=== PATIENT | male | born 1945 | race Caucasian/White ===

== ENCOUNTER 2016-03-15 15:35 | Observation (INO) ==
[2016-03-15] MEDS ORDERED: Ondansetron 4 MG/2 ML VIAL IVP PRN (17:49)
[2016-03-15] MEDS ORDERED: Acetaminophen 325 MG TABLET PO PRN (17:49)
[2016-03-15] MEDS ORDERED: *HR* Morphine 2 MG/ML SYRINGE IVP PRN (17:49)
[2016-03-15] MEDS ORDERED: Naloxone 0.4 MG/ML INJ IVP PRN (17:49)
[2016-03-15] MEDS ORDERED: Nitroglycerin 0.4 MG TAB.SUBL SL PRN (17:52)
[2016-03-15] MEDS ORDERED: Ipratropium/Albuterol Neb 3 ML IH PRN (17:52)
[2016-03-15] MEDS ORDERED: *HR* LORazepam 2 MG/ML VIAL IVP PRN ×3 (17:55)
--- NOTE | 2016-03-15 17:59 | Internal Med History&Physical ---
Date of Encounter: 03/15/16 Time of Encounter: 17:56 Assessment and Plan (1) Right hand weakness Current visit: Yes Status: Acute Possible CVA likely ischemic with residual right hand weakness Neurology consult Physical therapy Telemetry, neuro checks MRI of the brain, echocardiogram, carotid ultrasound, Statin, check lipid panel Start low-dose aspirin 81 mg, if patient develops any of the multiple allergic reaction like with Aleve we will switch to Plavix (2) CVA (cerebral vascular accident) Current visit: Yes Status: Acute Qualifiers: CVA mechanism: unspecified Qualified Code(s): I63.9 - Cerebral infarction, unspecified (3) Alcohol abuse Current visit: Yes Status: Acute Ativan as needed per CIWA scale (4) Hypertension Current visit: Yes Status: Acute Permissive hypertension today Qualifiers: Hypertension type: essential hypertension Qualified Code(s): I10 - Essential (primary) hypertension (5) Hyperlipidemia Current visit: Yes Status: Acute Qualifiers: Hyperlipidemia type: unspecified Qualified Code(s): E78.5 - Hyperlipidemia , unspecified (6) Leg swelling Current visit: Yes Status: Acute Check a venous duplex of both lower extremities Omeprazole for GI prophylaxis and subcutaneous tenderness heparin for DVT prophylaxis. The patient will be admitted for observation. Full code. Time spent on this admission 40 minutes. High risk for recurrent CVAs Internal Medicine - H&P: HPI Chief complaint: Right hand weakness Admitted From: Emergency Dept ([place]) History of present illness: Mr. Kelsey is a 70 year old male with a past medical history of hypertension, hyperlipidemia, depression, alcohol abuse, who comes to the emergency room complaining of right hand weakness. He came to [place] ER she notices if she developed problems with his right hand. He says that he went to bed at 2 AM and woke up at 9 PM and was not able to write properly, noticed a difference in his handgrip. His strength has improved slightly from the morning. He says that he developed an allergic reaction in the past to Aleve but he thinks he is able to take aspirin without any problem. Denies any other complain no numbness , no weakness anywhere else, no dizziness, no chest pain, shortness of breath. CT scan of the head was unremarkable. Past Med Surg Social Fam HX - Past Medical History Medical history: GERD, hyperlipidemia, hypertension, other (Alcohol abuse, dermatologic reaction to Aleve, GERD, diverticulosis, vitamin D deficiency, BPH , depression, iron deficiency anemia) Psychiatric history: no psych history - Past Surgical History Surgical History: other (Colonoscopy with polypectomy in October 2013) - Social History Smoking Status: Former smoker Smokeless Tobacco Status: No Alcohol use: heavy (Drinks 6 ounces of hard liquor +3 beers but says that he can go 5 days without any drinking without any problems) Drug use: none - Family History Grandfather Hx Family Neuromuscular Disorders: Yes (CVA) Grandmother Hx Family Neurologic Disorders: Yes (CVA) Mother Hx Family Neuromuscular Disorders: Yes (CVA) - Additional Family History Additional family history: Father with throat cancer and mother with CVA Internal Medicine - H&P: Meds Atenolol [Tenormin] 50 mg PO BID 01/12/16 [History] Cholecalciferol (D-3) [Vitamin D] 2,000 unit PO QPM 01/12/16 [History] Multivitamin [Multi-Day Vitamins] 1 tab PO QPM 01/12/16 [History] [place]-3/Dha/Epa/Fish Oil [Fish Oil 1,000 mg Softgel] 1 cap PO QPM 01/12/16 [ History] Pantoprazole Sodium [Protonix] 40 mg PO QPM 01/12/16 [History] Simvastatin [Zocor] 20 mg PO Q48H 01/12/16 [History] Tamsulosin [Flomax] 0.4 mg PO QPM 01/12/16 [History] TraZODone 50 mg PO HS 01/12/16 [History] Allergies fluoxetine [From Prozac] Allergy (Verified 03/15/16 13:28) Rash NSAIDS (Non-Steroidal Anti-Inflamma Allergy (Verified 03/15/16 13:28) Rash amlodipine Adverse Reaction (Verified 03/15/16 17:49) See Comments FLUID RETENTION All Systems PM: A 10-system review of systems was performed and is negative for pertinent findings except as documented above in the HPI. Review of systems: No chest pain, shortness of breath, other systems out of the ten reviewed were negative - Constitutional Vitals: Temp Pulse Resp BP Pulse Ox 97.5 F L 65 15 139/85 98 03/15/16 17:25 03/15/16 17:25 03/15/16 17:25 03/15/16 17:25 03/15/16 17:25 General appearance: Present: A&O X 3, no acute distress - Head Head exam: Present: atraumatic, normocephalic - Eye Eye exam: Present: PERRL, conjuntiva pink, sclera anicteric Pupils: Present: PERRL - Neck Neck exam general surgery: Present: supple, trachea midline. Absent: lymphadenopathy - Respiratory Respiratory exam: Present: CTAB. Absent: accessory muscle use, rales, rhonchi, wheezes - Cardiovascular Cardiovascular exam: Present: RRR, +S1, +S2. Absent: diastolic murmur, gallop, rubs, systolic murmur - GI/Abdominal GI/Abdominal exam: Present: normal bowel sounds, soft, no peritoneal signs. Absent: distended, tenderness - Extremities Exam Extremities exam: Present: warm, radial pulses palpable and symetrical. Absent : calf tenderness, cyanotic, pedal edema Additional comments: Minimal weakness in his right hand No dysmetria - Neurological Exam Neurological exam: Present: CN II-XII intact, oriented X3, no focal deficits. Absent: pronater drift, facial droop, speech deficit - Skin Skin exam: Present: dry, intact Internal Med - H&P Results - Labs Labs: White blood cell count 6.1, hemoglobin 12.7 platelets 136 glucose 136 sodium 138 potassium 3.9 chloride 104 CO2 24 BUN 12 creatinine 1.35 at baseline
[2016-03-15] MEDS: Aspirin 81 MG TAB.CHEW PO SCH (18:31)
[2016-03-15] MEDS: 0.9 % Sodium Chloride 1,000 ML IVC SCH (18:32)
[2016-03-15] MEDS ORDERED: traZODone 50 MG TABLET PO SCH (21:00)
[2016-03-15] MEDS: *HR* Heparin 5,000 UNIT/ML VIAL SQ SCH (23:12)
[2016-03-16 05:08] LABS: BUN/Creatinine Ratio 10 (6-26); Blood Urea Nitrogen 12 mg/dL (8-26); Calcium 9.1 mg/dL (8.6-10.8); Carbon Dioxide 26 mEq/L (19-29); Chloride 105 mEq/L (98-109); Chol/HDL Ratio 2.9 (0-4.9); Cholesterol 147 mg/dL (< 200); Glucose 95 mg/dL (70-99); HDL Cholesterol 50 mg/dL (40-59); LDL Cholesterol,Calculated 76 mg/dL (0-99); Osmolality,Calculated 286 (280-300); Potassium 3.8 mEq/L (3.5-4.5); Sodium 138 mEq/L (136-145); Triglycerides 103 mg/dL (< 150); eGFR For African Americans > 60 (> 60); eGFR For Non-African Americans 58 (> 60)
[2016-03-16] MEDS: 0.9 % Sodium Chloride 1,000 ML IVC SCH (06:09)
[2016-03-16] MEDS: *HR* Heparin 5,000 UNIT/ML VIAL SQ SCH (09:01)
[2016-03-16] MEDS: Aspirin 81 MG TAB.CHEW PO SCH (09:01)
--- NOTE | 2016-03-16 11:54 | ECHO - Doppler Report ---
Echo with Saline Contrast Name: Piyush Kelsey Date of Study: 03/16/2016 Date: 1945 Ht: 71.0 in Medical Record#: [id number] Age: 70 Wt: 248.0 lb Gender: Male BSA: 2.31 Order #: [id number] Location: [facility] Room #: [id number] Reading Physician: Earlene Foster DO Operating Theatre Technician: Teresa Maxwell RVT Ordering Physician: Andres Saba MD Primary Physician: South Salomon MD Impressions: LVEF 60-65%. Normal left ventricular size and systolic function. There is evidence of mild diastolic dysfunction of the left ventricle. Normal right ventricular size and function. Mild mitral regurgitation. No pulmonary hypertension. Left Ventricular Wall Motion: Rest Echo Findings All wall segments showed normal motion. Findings: Study Quality * Technically adequate exam. ECG Findings * Normal sinus rhythm. Left Ventricle * LVEF 60-65%. * Normal LV chamber size, wall thickness and function. * Mild left ventricular diastolic dysfunction. Aortic Valve * No aortic regurgitation. * Aortic valve not well visualized. * No aortic stenosis. Mitral Valve * Normal mitral valve structure. * No mitral stenosis. * Mild mitral regurgitation. Tricuspid Valve * Tricuspid valve not well visualized. * No tricuspid regurgitation. * Estimated RA pressure is 3 mmHg. Pulmonic Valve * Pulmonic valve is not well visualized. * No pulmonic stenosis. * No pulmonic regurgitation. Pulmonary Artery * Pulmonary artery not well visualized. Right Ventricle * Normal right ventricular structure and function. Right Atrium * Normal right atrial size. Left Atrium * Mildly dilated left atrium. Interatrial Septum * No evidence of PFO by color Doppler. * No evidence of PFO with agitated saline contrast. IVC * The IVC is not dilated. Pericardium * There is no pericardial effusion present. Aorta * Normally sized aortic root. History Measurements: 2D Normal Values RVIDd: 3.10 cm <2.7 cm IVSd: 1.00 cm 0.6 - 1.0 cm LVIDd: 5.10 cm 3.7 - 5.6 cm LVPWd: 1.10 cm 0.6 - 1.1 cm AO: 3.10 cm < 4.0 cm LA volume: Mitral Valve Peak E:.91 m/sec Peak A:.89 m/sec E/A Ratio:1 Tricuspid Valve TV Regurg Peak Grad: 5.00mmHg TV Regurg Peak Michael: 1.14m/sec Updated by Earlene Foster on 03/16/2016 11:47:15 AM electronically signed on 03/16/2016 11:48:12 AM with status of Final Wall Motion Gonzalez: 1=Normal, 2=Hypokinesis, 3=Akinesis, 4=Dyskinesis, 5=Aneurysmal, 6=Hyperkinetic, X=Not Visualized (Blank)=Missing
--- NOTE | 2016-03-16 12:11 | Venous Imaging Report ---
LE Venous Duplex Patient Name:Piyush Kelsey Order Number:[id number] Procedure Date:03/15/2016 Date:1945ge:70 yrs Gender:Male Location:[facility] Room #: [id number] [place] Operator:Sarah Haley Referring MD:Andres Saba MD budget clerk:South Salomon MD Reading MD:Marino Hernandez MD , FACS Primary Indications:CVA Secondary Indications: Impressions: Bilateral lower extremity: normal superficial and deep exam. Recommendations: After imaging the patient returned to their room. Findings Prior Study: No prior study available for comparison. Lower Extremity Venous Duplex Side Vein Compress Spontaneous Flow Augment Diameter (cm) Depth (cm) Right Distal Iliac Normal Yes Phasic Yes Right Common Femoral Normal Yes Phasic Yes Right Superficial Femoral Normal Yes Phasic Yes Right Popliteal Normal Yes Phasic Yes Right Posterior Tibial Normal Yes Phasic Yes Right Peroneal Normal Yes Phasic Yes Right Saphenofemoral [place] Normal Yes Phasic Yes Right Great Saphenous Normal Yes Phasic Yes Right Lesser Saphenous Normal Yes Phasic Yes Left Distal Iliac Normal Yes Phasic Yes Left Common Femoral Normal Yes Phasic Yes Left Superficial Femoral Normal Yes Phasic Yes Left Popliteal Normal Yes Phasic Yes Left Posterior Tibial Normal Yes Phasic Yes Left Peroneal Normal Yes Phasic Yes Left Saphenofemoral [place] Normal Yes Phasic Yes Left Great Saphenous Normal Yes Phasic Yes Left Lesser Saphenous Normal Yes Phasic Yes Updated by Marino Hernandez MD, FACS on 03/16/2016 12:05:03 PM Marnio Hernandez MD electronically signed on 03/16/2016 12:05:48 PM with status of Final
[2016-03-16] MEDS ORDERED: Benzonatate 100 MG CAPSULE PO PRN (12:40)
--- NOTE | 2016-03-16 13:43 | Neurology - Consult Note ---
Date of Encounter: 03/16/16 Time of Encounter: 13:43 Assessment and Plan (1) CVA (cerebral vascular accident) Current Visit: Yes Status: Acute - presents with right hand weakness that is improving - he has radiologic evidence of microinfarct to left precentral gyrus which would correlate to the right upper extremity and clinical findings - patient has no other neurologic deficits - ECHO is normal with EF 60-65% with mild diastolic dysfunction and mild MR and a mildly dilated left atrium - Carotid doppler reveals 40-59% right sided stenosis and non-stenotic plaque on the left - would recommend taking ASA daily Qualifiers: CVA mechanism: unspecified Qualified Code(s): I63.9 - Cerebral infarction, unspecified (2) Right hand weakness Current Visit: Yes Status: Acute - improving, initial weakness was isolated to thumb, and 2nd/3rd digits - denies numbness or tingling in the hand and affected digits - there is no thenar eminence atrophy - Tinel's sign negative and unlikely that this was due to carpal tunnel syndrome - plan as described above History of Present Illness Chief complaint: CVA/RIGHT HAND WEAKNESS HPI: Mr. Kelsey is a 70 year old male with past medical history of HTN, HLD, and alcohol abuse presents to the ED for right hand weakness. Patient was admitted to hospital for TIA/CVA workup and Neurology was consulted. Reports waking up at 0900 on 03/15/16 with right hand weakness isolated to the thumb and 2nd/3rd finger. He noticed a change in handgrip when using a pen to sign checks. His signature was described as sloppy and unrecognizable. Denies any other symptoms such as hand numbness, headache, neck pain, visual changes, or weakness in other extremities. Denies any slurred speech or facial droop. He reports going directly to a mirror to look at himself after noticing his hand weakness. He called his PCP Dr. Salomon and was advised to go to the ED around noon. Denies any history of CVA/TIA. Currently his workup is significant for acute microinfarct within the left precentral gyrus on Brain MRI. Initial CT head was normal with no intracranial abnormality. Denies history of cardiac ischemic disease or DVT/PE. No history of atrial fibrillation. No injuries, surgeries, or recent travel. He admits to drinking alcohol but denies IV drug use. Admits that he normally is on the computer and typing. On examination today patient is pleasant, alert, and oriented to person place and time. He reports significant improvement in right hand strength. He just worked with PT with dexterity. Denies any current complaints such as headache, radicular pain, dizziness, visual changes, neck pain, back pain, or other extremity weakness. Past Med Surg Social Fam HX - Past Medical History Medical history: GERD, hyperlipidemia, hypertension, other (Alcohol abuse, dermatologic reaction to Aleve, GERD, diverticulosis, vitamin D deficiency, BPH , depression, iron deficiency anemia) Psychiatric history: no psych history - Past Surgical History Surgical History: other (Colonoscopy with polypectomy in October 2013) - Social History Smoking Status: Former smoker Smokeless Tobacco Status: No Alcohol use: heavy (Drinks 6 ounces of hard liquor +3 beers but says that he can go 5 days without any drinking without any problems) Drug use: none - Family History Grandfather Hx Family Neuromuscular Disorders: Yes (CVA) Grandmother Hx Family Neurologic Disorders: Yes (CVA) Mother Hx Family Neuromuscular Disorders: Yes (CVA) Medications and Allergies Atenolol [Tenormin] 50 mg PO BID 01/12/16 [History] Cholecalciferol (D-3) [Vitamin D] 2,000 unit PO QPM 01/12/16 [History] Multivitamin [Multi-Day Vitamins] 1 tab PO QPM 01/12/16 [History] [place]-3/Dha/Epa/Fish Oil [Fish Oil 1,000 mg Softgel] 1 cap PO QPM 01/12/16 [ History] Pantoprazole Sodium [Protonix] 40 mg PO QPM 01/12/16 [History] Simvastatin [Zocor] 20 mg PO Q48H 01/12/16 [History] Tamsulosin [Flomax] 0.4 mg PO QPM 01/12/16 [History] TraZODone 50 mg PO HS 01/12/16 [History] Aspirin 81 mg PO DAILY #30 tab.chew 03/16/16 [Rx] Benzonatate [Tessalon] 200 mg PO TID PRN #30 capsule 03/16/16 [Rx] Allergies fluoxetine [From Prozac] Allergy (Verified 03/15/16 13:28) Rash NSAIDS (Non-Steroidal Anti-Inflamma Allergy (Verified 03/15/16 13:28) Rash amlodipine Adverse Reaction (Verified 03/15/16 17:49) See Comments FLUID RETENTION All Systems: A 10-system review of systems was performed and is negative for pertinent findings except as documented above in the HPI. - Constitutional Constitutional ROS IM: as per HPI - Nose, Mouth, Throat Nose, mouth and throat: as per HPI - Cardiovascular Cardiovascular ROS IM: as per HPI - Respiratory Respiratory IM: as per HPI - Gastrointestinal Gastrointestinal: as per HPI - Genitourinary Genitourinary ROS: as per HPI - Musculoskeletal Musculoskeletal ROS IM: as per HPI - Integumentary Integumentary IM: as per HPI - Neurological Neurological ROS: lack of coordination, weakness (right hand), no abnormal gait , no abnormal speech, no dizziness, no focal weakness, no loss of vision, no numbness, no paresthesias, no radicular pain, no sensory deficit, no syncope Physical Examination - Vital Signs Vital Signs: Initial Vital Signs Temp Pulse Resp BP Pulse Ox 97.5 F L 65 15 139/85 98 03/15/16 17:25 03/15/16 17:25 03/15/16 17:25 03/15/16 17:25 03/15/16 17:25 - Constitutional General appearance: comfortable - Neurologic Sensorimotor examination: intact Detailed motor examination: grossly full strength in all extremities, full strength in all major muscle groups Motor examination - right side: 4/5: manager telemarketing, 5/5: deltoids, biceps, triceps, wrist flexion, wrist extension, hip flexors, tibialis Anterior, quadriceps, toe extension (EHL), plantarflexion Motor examination - left side: 5/5: deltoids, biceps, triceps, wrist flexion, wrist extension, hip flexors, manager telemarketing, quadriceps, tibialis Anterior, toe extension (EHL), plantarflexion Detailed sensory examination: intact, light touch Reflex and gait examination: intact Reflexes: Biceps: 1+, Triceps: 1+, Brachioradialis: 1+, Patella: 1+, Achilles: 1 + Mental Status Examination: awake, alert, oriented to person, oriented to place, oriented to time, follows commands appropriately, answers questions appropriately, no agnosia, no aphasia, no aproxia Cranial nerve examination: PERRL, EOMI, visual franco intact, sensory to face intact, mastication intact, no facial asymmetry is present, no dysarthria, hearing is intact symmetrically, soft palate elevates bilaterally upon phonation , flexes SCM and trapezius muscles symmetrically with full power, tongue protrudes midline, no atrophy or facial fasiculations present Cerebellar examination: no dysmetria, performs finger to nose and heel to metzger symmetrically without ataxia, no gait ataxia, no difficulty with rapid alternating movements Results - Laboratory Findings CBC and BMP: 03/16/16 04:32 Abnormal lab findings: Abnormal lab results Est GFR (Non-Af Amer) 58 (> 60) L 03/16/16 04:32 Consult Discharge Plan - Plan Instructions: Hypertension (DC) Referrals: South Salomon MD [Primary Care Provider] - Prescriptions: Aspirin 81 mg PO DAILY #30 tab.chew Benzonatate [Tessalon] 200 mg PO TID PRN #30 capsule PRN Reason: Cough
[2016-03-16 14:46] VITALS: BP 111/71
--- NOTE | 2016-03-16 16:25 | Discharge Summary ---
Date of Encounter: 03/16/16 Time of Encounter: 16:22 - Discharge Diagnosis (1) CVA (cerebral vascular accident) Priority: Primary Status: Acute Qualifiers: CVA mechanism: unspecified Qualified Code(s): I63.9 - Cerebral infarction, unspecified (2) Hyperlipidemia Priority: Secondary Status: Acute Qualifiers: Hyperlipidemia type: unspecified Qualified Code(s): E78.5 - Hyperlipidemia , unspecified (3) Hypertension Priority: Secondary Status: Acute Qualifiers: Hypertension type: essential hypertension Qualified Code(s): I10 - Essential (primary) hypertension (4) Right hand weakness Priority: Primary Status: Acute - Discharge Medications Prescriptions: Aspirin 81 mg PO DAILY #30 tab.chew Benzonatate [Tessalon] 200 mg PO TID PRN #30 capsule PRN Reason: Cough Home Medications: Atenolol [Tenormin] 50 mg PO BID 01/12/16 [History] Cholecalciferol (D-3) [Vitamin D] 2,000 unit PO QPM 01/12/16 [History] Multivitamin [Multi-Day Vitamins] 1 tab PO QPM 01/12/16 [History] [place]-3/Dha/Epa/Fish Oil [Fish Oil 1,000 mg Softgel] 1 cap PO QPM 01/12/16 [ History] Pantoprazole Sodium [Protonix] 40 mg PO QPM 01/12/16 [History] Simvastatin [Zocor] 20 mg PO Q48H 01/12/16 [History] Tamsulosin [Flomax] 0.4 mg PO QPM 01/12/16 [History] TraZODone 50 mg PO HS 01/12/16 [History] Aspirin 81 mg PO DAILY #30 tab.chew 03/16/16 [Rx] Benzonatate [Tessalon] 200 mg PO TID PRN #30 capsule 03/16/16 [Rx] Allergies/Adverse Reactions: Allergies fluoxetine [From Prozac] Allergy (Verified 03/15/16 13:28) Rash NSAIDS (Non-Steroidal Anti-Inflamma Allergy (Verified 03/15/16 13:28) Rash amlodipine Adverse Reaction (Verified 03/15/16 17:49) See Comments FLUID RETENTION Procedures/tests Complete & Pending: Procedures Performed prior 72 hours Category Date Time Status MR head/brain wo con [MR] Routine MRI 03/15/16 17:53 Completed EV carotid duplex imaging BI Routine Y 03/15/16 17:53 Completed EV echocardiogram Routine Y 03/16/16 17:53 Completed EV venous imaging LE BI Routine Y 03/15/16 17:53 Completed Date of admission: 03/15/16 17:04 Primary care physician: South Salomon MD Consults: 03/15/16 17:51 Consult to Physical Therapy [CONS] Routine Comment: Evaluate, develop and implement POC Consult to Scrub Tech [CONS] Routine Reason for SW Consult: . 03/15/16 17:55 Consult to Neurology [CONS] Routine Consulting Provider: Neurology [facility] Reason for Consult: cva, right hand weakness Call Completed: Yes Discharging clinician: Duc Lion Anticipated date of discharge: 03/16/16 - Patient Status Disposition: Home, Self-Care Condition: Fair Functional capacity at discharge: independent ambulation Overall status at discharge: patient is back to baseline - Discharge Instructions Instructions: Hypertension (DC) Follow Up With: South Salomon MD [Primary Care Provider] - - Diet and Activity Activity: resume usual activities as tolerated Diet: advance to your usual diet Interval History: Mr. Kelsey is a 70 year old male with past medical history of HTN, HLD, and alcohol abuse presents to the ED for right hand weakness. Reports waking up at 9A on 03/15/16 with right hand weakness isolated to the thumb and 2nd/3rd finger. He noticed a change in handgrip when using a pen to sign checks. His signature was described as sloopy and unrecognizable. Denies any other symptoms such as hand numbness, headache, neck pain, visual changes, or weakness in other extremities. Denies any slurred speech or facial droop. He reports going directly to a mirror to look at himself after noticing his hand weakness. He called his PCP Dr. Salomon and was advised to go to the ED around noon. Denies any history of CVA/TIA/ Denies history of cardiac ischemic disease or DVT/PE. No history of atrial fibrillation. No injuries, surgeries, or recent travel. He admits to drinking alcohol but denies IV drug use. Patient was admitted to [facility] for CVA/TIA workup as he continued to have right hand weakness. Neurology consulted for right hand weakness. CT head was normal without intracranial abnormality. Brain MRI demonstrates an acute microinfarct within left Precentral Gyrus. On examination, patient is pleasant, alert, and oriented to person place and time. He reports significant improvement in right hand strength. He just worked with PT with dexterity. Denies any current complaints such as headache, radicular pain, dizziness, visual changes, neck pain, back pain, or other extremity weakness. ECHO is normal with EF 60-65% with mild diastolic dysfunction and mild MR and a mildly dilated left atrium - Carotid doppler reveals 40-59% right sided stenosis and non-stenotic plaque on the left - neurology recommneded ASA daily, limited PT OT was consulted and they recommended outpatient rehabilitation. She has being discharged today in stable condition,SW discussed therapies recommendation for continued outpt. therapy once he is discharged. Informed pt. that he will need to have referral made through his PCP. Pt. verbalizes understanding. Hospital course: Mr. Kelsey is a 70 year old male Time spent discussing smoking cessation with patient: more than 10 minutes - Time Spent with Patient Total time spent providing and/or coordinating discharge services: Greater than 30 minutes - Constitutional Vitals: Temp Pulse Resp BP Pulse Ox 98.0 F 70 14 111/71 93 L 03/16/16 14:46 03/16/16 14:46 03/16/16 14:46 03/16/16 14:46 03/16/16 14:46 General appearance: Present: A&O X 3, no acute distress Exam: General appearance: Present: A&O X 3, no acute distress - Head Head exam: Present: atraumatic, normocephalic - Eye Eye exam: Present: PERRL, conjuntiva pink, sclera anicteric Pupils: Present: PERRL - Neck Neck exam general surgery: Present: supple, trachea midline. Absent: lymphadenopathy - Respiratory Respiratory exam: Present: CTAB. Absent: accessory muscle use, rales, rhonchi, wheezes - Cardiovascular Cardiovascular exam: Present: RRR, +S1, +S2. Absent: diastolic murmur, gallop, rubs, systolic murmur - GI/Abdominal GI/Abdominal exam: Present: normal bowel sounds, soft, no peritoneal signs. Absent: distended, tenderness - Extremities Exam Extremities exam: Present: warm, radial pulses palpable and symetrical. Absent : calf tenderness, cyanotic, pedal edema Additional comments: Minimal weakness in his right hand No dysmetria - Neurological Exam Neurological exam: Present: CN II-XII intact, oriented X3, no focal deficits. Absent: pronater drift, facial droop, speech deficit - Skin Skin exam: Present: dry, intact
--- NOTE | 2016-03-16 17:13 | Carotid Imaging Report ---
Carotid Duplex Patient Name:Piyush Kelsey Order Number:[id number] Procedure Date:03/15/2016 Date:6Age:70 yrs Gender:Male Location:[facility] Room #: 3B41 African Studies Professor:Sarah Haley Referring MD:Andres Saba MD slip cover estimator:[place] MD Reading MD:Marino Hernandez MD , FACS Primary Indications:CVA Risk Factors Yes/No Hypertension Hypercholesterolemia Hx of CVA Unknown Smoker Previous Impressions: Findings: Right distal ICA has a moderate, 40-59% stenosis. Findings: Right carotid system is essentially normal. Findings Carotid Duplex: Right: There is 40-59% stenosis in the right distal internal carotid artery. There is smooth homogeneous plaque. Left: There is nonstenotic plaque in the left distal common carotid artery. There is smooth homogeneous plaque. Prior Study: No prior study available for comparison. Carotid Results Right PSV EDV Assessment Proximal CCA 124 22 Normal Mid CCA 95 24 Normal Distal CCA 104 27 Normal Bifurcation 59 16 Normal Proximal ICA 66 18 Normal Mid ICA 91 34 Normal Distal ICA 123 53 40-59% stenosis ECA 86 16 Normal Vertebral Artery 28 10 Antegrade Flow Left PSV EDV Assessment Proximal CCA 112 29 Normal Mid CCA 104 30 Normal Distal CCA 119 34 Non Stenotic Plaque Bifurcation 127 37 Non Stenotic Plaque Proximal ICA 58 14 Normal Mid ICA 87 36 Normal Distal ICA 91 35 Normal ECA 72 14 Normal Vertebral Artery 67 27 Antegrade Flow Ratio's Right ICA/CCA Ratio: 1.30 ICA/CCA Values: 123/95 Left ICA/CCA Ratio: 0.88 ICA/CCA Values: 91/104 Updated by Marino Hernandez MD, FACS on 03/16/2016 5:07:48 PM Marino Hernandez MD electronically signed on 03/16/2016 5:08:45 PM with status of Final
== END 2016-03-16 17:36 | disposition home or self-care (01) ==
LOC: 3BNU
PROVIDERS: ADMIT Internal Medicine; ATTEND Nurse Practitioner Family

== ENCOUNTER 2020-08-13 13:30 | Inpatient (IN) ==
[2020-08-13] MEDS ORDERED: Naloxone 0.4 MG/ML INJ IVP PRN (15:34)
[2020-08-13] MEDS ORDERED: Vancomycin (wt based) 1,000 MG VIAL IVPB SCH (16:00)
[2020-08-13] MEDS ORDERED: 0.9 % Sodium Chloride 3,000 ML ONE (16:19)
[2020-08-13 16:39] LABS: ABG Base Excess 0 mEq/L (-2 to 3); ABG HCO3 24 mEq/L (21-27); ABG Oxygen Saturation 96 % (95-98); ABG PCO2 38 mmHg (35-45); ABG PH 7.41 pH Units (7.32-7.45); ABG PO2 77 mmHg (85-104); ABG TCO2 25 mEq/L (20-26); Blood Gas Pressure Support 10 cm H2O
[2020-08-13 17:05] LABS: Hematocrit 27.7 % (37.5-50.1); Hemoglobin 9.7 g/dL (12.9-16.9); Immature Platelets 3.4 % (1.1-6.1); Mean Corpuscular Hemoglobin 36.5 pg (28.0-33.3); Mean Corpuscular Volume 104.1 fL (83.0-100.0); Mean Platelet Volume 9.5 fL (9.4-12.4); Platelet Count 102 K/mcL (140-400); Red Blood Count 2.66 M/mcL (4.19-5.50); Red Cell Distribution Width 14.2 % (11.5-14.5); White Blood Count 4.8 K/mcL (4.3-11.1)
[2020-08-13 17:10] LABS: INR 1.7; Prothrombin Time 19.5 Seconds (9.4-12.1)
[2020-08-13 17:13] LABS: Activated Partial Thrombo Time 32.1 Seconds (26.0-36.0)
[2020-08-13 17:27] LABS: Alanine Aminotransferase 41 Units/L (7-52); Albumin 2.3 g/dL (3.5-5.7); Alkaline Phosphatase 84 Units/L (34-104); Aspartate Amino Transferase 58 Units/L (13-39); BUN/Creatinine Ratio 8 (6-26); Bilirubin,Direct 0.6 mg/dL (0.0-0.2); Bilirubin,Indirect 0.7 mg/dL (0.0-1.0); Bilirubin,Total 1.3 mg/dL (0.3-1.0); Blood Urea Nitrogen 10 mg/dL (8-23); Carbon Dioxide 25 mEq/L (23-29); Chloride 106 mEq/L (98-107); Globulin 2.4 g/dL (2.4-3.5); Glucose 111 mg/dL (70-105); Magnesium 1.5 mg/dL (1.6-2.6); Osmolality,Calculated 288 (280-300); Phosphorous 3.1 mg/dL (2.7-4.5); Sodium 139 mEq/L (136-145); Total Protein 4.7 g/dL (6.4-8.9); Troponin I 0.08 ng/mL (< 0.04); eGFR For African Americans > 60 (> 60); eGFR For Non-African Americans 54 (> 60)
[2020-08-13 17:31] LABS: Lymphocytes # 0.6 K/mcL (0.6-4.6); Neutrophils # 4.2 K/mcL (1.6-8.9)
[2020-08-13 17:32] LABS: Reactive Lymphocytes Present (Not Present); Smudge Cells Present (Not Present)
[2020-08-13] MEDS ORDERED: Vancomycin 1,500 MG/265 ML IV.SOLN IVPB ONE (17:44)
[2020-08-13] MEDS: 0.9 % Sodium Chloride 1,000 ML IVC SCH ×3 (17:44→19:22)
[2020-08-13 17:54] LABS: Bilirubin,Urine Negative (Negative); Blood,Urine Negative (Negative); Clarity,Urine Clear (Clear); Color,Urine Light-Yellow (Yellow); Glucose,Urine (UA) Normal (Normal); Hyaline Casts,Urine Few per lpf (None Seen); Ketones,Urine Negative (Negative); Leukocyte Esterase,Urine Small (Negative); Nitrite,Urine Negative (Negative); Protein,Urine Negative (Neg-Trace); RBC,Urine 0-3 per hpf (0-3); Specific Gravity,Urine 1.012 (1.010-1.025); Squamous Epithelial Cell,Urine Few per hpf (None-Few); Urobilinogen,Urine Normal (Normal)
[2020-08-13] MEDS ORDERED: Ipratropium/Albuterol Neb 3 ML IH PRN (18:03)
[2020-08-13] MEDS: Piperacillin/Tazobactam 3.375 GM in 0.9 % Sodium Chloride Mini Bag 100 ML IVPB SCH (18:36)
[2020-08-13] MEDS: Thiamine (B-1) 100 MG, Folic Acid 1 MG, MVI, adult with vitamin K 10 ML in 0.9 % Sodi... IVPB SCH (18:58)
[2020-08-14] MEDS: Norepinephrine 4 MG/254 ML IV.SOLN IVC SCH ×2 (01:07→15:23)
[2020-08-14] MEDS: Piperacillin/Tazobactam 3.375 GM in 0.9 % Sodium Chloride Mini Bag 100 ML IVPB SCH ×3 (03:09→18:04)
[2020-08-14 04:02] LABS: Hematocrit 27.1 % (37.5-50.1); Hemoglobin 9.1 g/dL (12.9-16.9); Lymphocytes # 0.4 K/mcL (0.6-4.6); Mean Corpuscular HGB Conc 33.6 g/dL (31.6-35.5); Mean Corpuscular Volume 107.1 fL (83.0-100.0); Mean Platelet Volume 9.8 fL (9.4-12.4); Red Blood Count 2.53 M/mcL (4.19-5.50); Red Cell Distribution Width 14.4 % (11.5-14.5); White Blood Count 3.6 K/mcL (4.3-11.1)
[2020-08-14 04:04] LABS: Platelet Count 75 K/mcL (140-400)
[2020-08-14 04:10] LABS: VBG Ionized Calcium 1.19 mmol/L (1.15-1.35)
[2020-08-14 04:16] LABS: Alanine Aminotransferase 47 Units/L (7-52); Albumin 2.2 g/dL (3.5-5.7); Alkaline Phosphatase 84 Units/L (34-104); Aspartate Amino Transferase 79 Units/L (13-39); BUN/Creatinine Ratio 10 (6-26); Bilirubin,Total 1.1 mg/dL (0.3-1.0); Blood Urea Nitrogen 12 mg/dL (8-23); Calcium 7.5 mg/dL (8.6-10.3); Carbon Dioxide 24 mEq/L (23-29); Chloride 111 mEq/L (98-107); Globulin 2.2 g/dL (2.4-3.5); Glucose 103 mg/dL (70-105); Magnesium 1.7 mg/dL (1.6-2.6); Osmolality,Calculated 288 (280-300); Phosphorous 2.9 mg/dL (2.7-4.5); Potassium 3.7 mEq/L (3.5-5.1); Sodium 139 mEq/L (136-145); Total Protein 4.4 g/dL (6.4-8.9); eGFR For African Americans > 60 (> 60); eGFR For Non-African Americans > 60 (> 60)
[2020-08-14 04:32] LABS: Eosinophils # 0.1 K/mcL (0.0-0.6); Monocytes # 0.1 K/mcL (0.0-1.3)
[2020-08-14 04:33] LABS: Platelet Estimate Decreased (Normal); Reactive Lymphocytes Present (Not Present); Toxic Granulation Present (Not Present)
[2020-08-14] MEDS: *HR* Heparin 5,000 UNIT/ML VIAL SQ SCH ×2 (05:47→17:11)
[2020-08-14] MEDS: MethylPREDNISolone 40 MG/ML VIAL IVP SCH ×2 (05:47→17:11)
[2020-08-14] MEDS ORDERED: Vancomycin 1,500 MG/265 ML IV.SOLN IVPB SCH (07:00)
[2020-08-14] MEDS ORDERED: Perflutren Lipid Microsphere 1.3 ML in 0.9 % Sodium Chloride 8.7 ML IVP PRN (09:30)
[2020-08-14] MEDS: Thiamine (B-1) 100 MG, Folic Acid 1 MG, MVI, adult with vitamin K 10 ML in 0.9 % Sodi... IVPB SCH (17:13)
[2020-08-15] MEDS: Piperacillin/Tazobactam 3.375 GM in 0.9 % Sodium Chloride Mini Bag 100 ML IVPB SCH ×3 (02:37→19:44)
[2020-08-15 03:10] LABS: VBG Ionized Calcium 1.26 mmol/L (1.15-1.35)
[2020-08-15 03:18] LABS: Basophils % 0.3 %; Hematocrit 27.6 % (37.5-50.1); Hemoglobin 9.1 g/dL (12.9-16.9); Immature Granulocytes % 0.6 % (0-4); Immature Platelets 4.9 % (1.1-6.1); Lymphocytes # 0.2 K/mcL (0.6-4.6); Lymphocytes % 7.1 %; Mean Corpuscular Hemoglobin 35.5 pg (28.0-33.3); Mean Corpuscular Volume 107.8 fL (83.0-100.0); Mean Platelet Volume 10.3 fL (9.4-12.4); Monocytes # 0.2 K/mcL (0.0-1.3); Red Blood Count 2.56 M/mcL (4.19-5.50); Red Cell Distribution Width 14.1 % (11.5-14.5); White Blood Count 3.4 K/mcL (4.3-11.1)
[2020-08-15 03:19] LABS: Platelet Count 88 K/mcL (140-400)
[2020-08-15 03:37] LABS: Alanine Aminotransferase 47 Units/L (7-52); Albumin 2.2 g/dL (3.5-5.7); Albumin/Globulin Ratio 0.9 (1.1-2.2); Alkaline Phosphatase 79 Units/L (34-104); Aspartate Amino Transferase 69 Units/L (13-39); BUN/Creatinine Ratio 16 (6-26); Bilirubin,Total 0.9 mg/dL (0.3-1.0); Blood Urea Nitrogen 18 mg/dL (8-23); Calcium 7.8 mg/dL (8.6-10.3); Carbon Dioxide 22 mEq/L (23-29); Chloride 111 mEq/L (98-107); Globulin 2.4 g/dL (2.4-3.5); Glucose 122 mg/dL (70-105); Magnesium 2.1 mg/dL (1.6-2.6); Osmolality,Calculated 301 (280-300); Phosphorous 2.8 mg/dL (2.7-4.5); Sodium 144 mEq/L (136-145); Total Protein 4.6 g/dL (6.4-8.9); eGFR For African Americans > 60 (> 60); eGFR For Non-African Americans > 60 (> 60)
[2020-08-15 03:40] LABS: Platelet Estimate Slight Decrease (Normal)
[2020-08-15 03:41] LABS: Toxic Granulation Present (Not Present)
[2020-08-15] MEDS: *HR* Heparin 5,000 UNIT/ML VIAL SQ SCH (04:35)
[2020-08-15] MEDS ORDERED: Ipratropium/Albuterol Neb 3 ML IH PRN (05:01)
[2020-08-15] MEDS ORDERED: Naloxone 0.4 MG/ML INJ IVP PRN (05:01)
[2020-08-15] MEDS ORDERED: Pantoprazole 40 MG VIAL IVP SCH (06:00)
[2020-08-15] MEDS ORDERED: *HR* Heparin 5,000 UNIT/ML VIAL SQ SCH (06:00)
[2020-08-15] MEDS: MethylPREDNISolone 40 MG/ML VIAL IVP SCH ×2 (06:44→17:16)
[2020-08-15] MEDS ORDERED: Ipratropium Neb 0.5 MG NEBULIZER IH PRN (08:10)
[2020-08-15] MEDS: Vancomycin 1,750 MG/517.5 ML IV.SOLN IVPB SCH (08:23)
[2020-08-15] MEDS: Levalbuterol Neb 0.63 MG/3 ML IH SCH ×3 (09:49→22:36)
[2020-08-15 12:30] LABS: VBG HCO3 24 mEq/L (21-27); VBG PCO2 49 mmHg (41-51); VBG PH 7.29 pH Units (7.32-7.42); VBG PO2 226 mmHg (25-50)
[2020-08-15] MEDS ORDERED: Thiamine (B-1) 100 MG, Folic Acid 1 MG, MVI, adult with vitamin K 10 ML in 0.9 % Sodi... IVPB SCH (18:00)
[2020-08-16] MEDS: Piperacillin/Tazobactam 3.375 GM in 0.9 % Sodium Chloride Mini Bag 100 ML IVPB SCH ×3 (02:48→17:50)
[2020-08-16 03:05] LABS: VBG HCO3 24 mEq/L (21-27); VBG Ionized Calcium 1.28 mmol/L (1.15-1.35); VBG PCO2 49 mmHg (41-51); VBG PH 7.29 pH Units (7.32-7.42); VBG PO2 203 mmHg (25-50)
[2020-08-16 03:06] LABS: Hematocrit 28.2 % (37.5-50.1); Hemoglobin 9.3 g/dL (12.9-16.9); Immature Granulocytes % 0.9 % (0-4); Immature Platelets 5.3 % (1.1-6.1); Lymphocytes # 0.2 K/mcL (0.6-4.6); Lymphocytes % 3.7 %; Mean Corpuscular Hemoglobin 35.2 pg (28.0-33.3); Mean Corpuscular Volume 106.8 fL (83.0-100.0); Mean Platelet Volume 10.2 fL (9.4-12.4); Monocytes # 0.3 K/mcL (0.0-1.3); Monocytes % 4.4 %; Neutrophils # 5.2 K/mcL (1.6-8.9); Platelet Count 109 K/mcL (140-400); Red Blood Count 2.64 M/mcL (4.19-5.50); Red Cell Distribution Width 14.2 % (11.5-14.5); White Blood Count 5.7 K/mcL (4.3-11.1)
[2020-08-16 03:24] LABS: Alanine Aminotransferase 46 Units/L (7-52); Albumin 2.3 g/dL (3.5-5.7); Albumin/Globulin Ratio 0.9 (1.1-2.2); Alkaline Phosphatase 106 Units/L (34-104); Aspartate Amino Transferase 51 Units/L (13-39); BUN/Creatinine Ratio 19 (6-26); Bilirubin,Total 0.7 mg/dL (0.3-1.0); Blood Urea Nitrogen 23 mg/dL (8-23); Calcium 8.3 mg/dL (8.6-10.3); Carbon Dioxide 22 mEq/L (23-29); Chloride 112 mEq/L (98-107); Globulin 2.7 g/dL (2.4-3.5); Glucose 135 mg/dL (70-105); Osmolality,Calculated 304 (280-300); Phosphorous 3.1 mg/dL (2.7-4.5); Potassium 3.9 mEq/L (3.5-5.1); Sodium 144 mEq/L (136-145); eGFR For African Americans > 60 (> 60); eGFR For Non-African Americans 59 (> 60)
[2020-08-16] MEDS: Levalbuterol Neb 0.63 MG/3 ML IH SCH ×4 (03:51→22:38)
[2020-08-16] MEDS: MethylPREDNISolone 40 MG/ML VIAL IVP SCH ×2 (06:20→17:44)
[2020-08-16] MEDS: Vancomycin 1,750 MG/517.5 ML IV.SOLN IVPB SCH (06:20)
[2020-08-16] MEDS: Pantoprazole 40 MG VIAL IVP SCH (08:25)
[2020-08-16 10:29] LABS: ABG Base Excess -3 mEq/L (-2 to 3); ABG HCO3 23 mEq/L (21-27); ABG Oxygen Saturation 85 % (95-98); ABG PCO2 41 mmHg (35-45); ABG PH 7.35 pH Units (7.32-7.45); ABG PO2 52 mmHg (85-104); ABG TCO2 24 mEq/L (20-26)
[2020-08-16] MEDS ORDERED: Morphine Sulfate 2 MG/ML SYRINGE IVP PRN (12:37)
[2020-08-16] MEDS ORDERED: *HR* LORazepam 2 MG/ML VIAL IVP PRN (12:39)
[2020-08-16] MEDS: Thiamine (B-1) 100 MG, Folic Acid 1 MG, MVI, adult with vitamin K 10 ML in 0.9 % Sodi... IVPB SCH (17:44)
[2020-08-16] MEDS: *HR* Heparin 5,000 UNIT/ML VIAL SQ SCH (17:44)
[2020-08-17] MEDS: Piperacillin/Tazobactam 3.375 GM in 0.9 % Sodium Chloride Mini Bag 100 ML IVPB SCH ×3 (03:40→18:16)
[2020-08-17] MEDS: Levalbuterol Neb 0.63 MG/3 ML IH SCH ×4 (03:46→23:17)
[2020-08-17 03:58] LABS: Hemoglobin 8.8 g/dL (12.9-16.9); Immature Granulocytes % 0.5 % (0-4); Monocytes % 5.9 %; Red Cell Distribution Width 14.5 % (11.5-14.5)
[2020-08-17 03:58] LABS: VBG Ionized Calcium 1.32 mmol/L (1.15-1.35)
[2020-08-17 03:59] LABS: Basophils % 0.2 %; Hematocrit 26.9 % (37.5-50.1); Immature Platelets 4.5 % (1.1-6.1); Lymphocytes # 0.2 K/mcL (0.6-4.6); Lymphocytes % 3.3 %; Mean Corpuscular HGB Conc 32.7 g/dL (31.6-35.5); Mean Corpuscular Hemoglobin 35.2 pg (28.0-33.3); Mean Corpuscular Volume 107.6 fL (83.0-100.0); Monocytes # 0.3 K/mcL (0.0-1.3); Neutrophils # 5.2 K/mcL (1.6-8.9); Platelet Count 112 K/mcL (140-400); Segmented Neutrophils % 90.1 %; White Blood Count 5.8 K/mcL (4.3-11.1)
[2020-08-17 04:03] LABS: VBG HCO3 24 mEq/L (21-27); VBG PCO2 50 mmHg (41-51); VBG PO2 135 mmHg (25-50)
[2020-08-17 04:10] LABS: Albumin 2.4 g/dL (3.5-5.7); Bilirubin,Total 0.8 mg/dL (0.3-1.0); Calcium 8.5 mg/dL (8.6-10.3); Globulin 2.4 g/dL (2.4-3.5); Magnesium 2.2 mg/dL (1.6-2.6); Phosphorous 3.4 mg/dL (2.7-4.5); Total Protein 4.8 g/dL (6.4-8.9)
[2020-08-17] MEDS: MethylPREDNISolone 40 MG/ML VIAL IVP SCH ×2 (05:34→17:13)
[2020-08-17] MEDS: *HR* Heparin 5,000 UNIT/ML VIAL SQ SCH ×2 (05:35→17:13)
[2020-08-17] MEDS ORDERED: Vancomycin 1 EACH in 0.9 % Sodium Chloride 250 ML IVPB SCH (07:00)
[2020-08-17] MEDS: Pantoprazole 40 MG VIAL IVP SCH (09:24)
[2020-08-17] MEDS: Lacri-Lube 3.5 GM TUBE BOTH EYES SCH ×2 (11:44→20:57)
[2020-08-17] MEDS ORDERED: Cyanocobalamin (B-12) 1,000 MCG/ML VIAL IM SCH (13:50)
[2020-08-17] MEDS ORDERED: Ringers Solution, Lactated 1,000 ML IVC SCH (14:15)
[2020-08-17 15:19] LABS: Thyroid Stimulating Hormone 2.019 mcIU/mL (0.340-5.600)
[2020-08-17 15:21] LABS: Triiodothyronine (T3) Free 2.7 pg/mL (2.50-3.90)
[2020-08-17 15:31] LABS: Folate > 22.3 ng/mL (3.0-16.0); Vitamin B12 > 1500 pg/mL (250-1100)
[2020-08-17 15:40] LABS: Amorphous Sediment,Urine Few per hpf (None-Few); Bacteria,Urine Few per hpf (None-Few); Bilirubin,Urine Negative (Negative); Blood,Urine Trace (Negative); Clarity,Urine Turbid (Clear); Color,Urine Yellow (Yellow); Glucose,Urine (UA) Normal (Normal); Hyaline Casts,Urine Few per lpf (None Seen); Ketones,Urine Trace mg/dL (Negative); Leukocyte Esterase,Urine Large (Negative); Mucus,Urine Few per lpf (None-Few); Nitrite,Urine Negative (Negative); PH,Urine 5.5 pH Units (5.0-8.0); Protein,Urine 30 mg/dL (Neg-Trace); Specific Gravity,Urine 1.023 (1.010-1.025); Squamous Epithelial Cell,Urine Moderate per hpf (None-Few); Urobilinogen,Urine Normal (Normal); WBC,Urine TNTC per hpf (0-3)
[2020-08-17] MEDS: Thiamine (B-1) 100 MG, Folic Acid 1 MG, MVI, adult with vitamin K 10 ML in 0.9 % Sodi... IVPB SCH (17:13)
[2020-08-18 01:51] LABS: VBG HCO3 24 mEq/L (21-27); VBG Ionized Calcium 1.28 mmol/L (1.15-1.35); VBG PCO2 44 mmHg (41-51); VBG PH 7.34 pH Units (7.32-7.42); VBG PO2 225 mmHg (25-50)
[2020-08-18 01:51] LABS: Basophils % 0.2 %; Hematocrit 25.9 % (37.5-50.1); Hemoglobin 8.4 g/dL (12.9-16.9); Immature Platelets 4.3 % (1.1-6.1); Lymphocytes # 0.2 K/mcL (0.6-4.6); Lymphocytes % 5.6 %; Mean Corpuscular HGB Conc 32.4 g/dL (31.6-35.5); Mean Corpuscular Hemoglobin 34.9 pg (28.0-33.3); Mean Corpuscular Volume 107.5 fL (83.0-100.0); Monocytes # 0.3 K/mcL (0.0-1.3); Monocytes % 6.1 %; Neutrophils # 3.6 K/mcL (1.6-8.9); Platelet Count 104 K/mcL (140-400); Red Blood Count 2.41 M/mcL (4.19-5.50); Red Cell Distribution Width 14.6 % (11.5-14.5); Segmented Neutrophils % 87.1 %; White Blood Count 4.1 K/mcL (4.3-11.1)
[2020-08-18 02:07] LABS: Albumin 2.4 g/dL (3.5-5.7); Bilirubin,Total 0.8 mg/dL (0.3-1.0); Calcium 8.5 mg/dL (8.6-10.3); Globulin 2.4 g/dL (2.4-3.5); Magnesium 2.1 mg/dL (1.6-2.6); Phosphorous 3.2 mg/dL (2.7-4.5); Total Protein 4.8 g/dL (6.4-8.9)
[2020-08-18] MEDS: Piperacillin/Tazobactam 3.375 GM in 0.9 % Sodium Chloride Mini Bag 100 ML IVPB SCH ×3 (03:06→17:55)
[2020-08-18] MEDS: Levalbuterol Neb 0.63 MG/3 ML IH SCH ×4 (03:43→21:34)
[2020-08-18] MEDS: MethylPREDNISolone 40 MG/ML VIAL IVP SCH ×2 (06:16→17:55)
[2020-08-18] MEDS: *HR* Heparin 5,000 UNIT/ML VIAL SQ SCH ×2 (06:18→17:55)
[2020-08-18] MEDS ORDERED: D5% in Water 250 ML IVC SCH ×2 (07:15→15:00)
[2020-08-18] MEDS: Pantoprazole 40 MG VIAL IVP SCH (10:37)
[2020-08-18] MEDS: Lacri-Lube 3.5 GM TUBE BOTH EYES SCH ×2 (10:39→22:34)
[2020-08-18] MEDS: Thiamine (B-1) 100 MG, Folic Acid 1 MG, MVI, adult with vitamin K 10 ML in 0.9 % Sodi... IVPB SCH (18:03)
[2020-08-19] MEDS: Piperacillin/Tazobactam 3.375 GM in 0.9 % Sodium Chloride Mini Bag 100 ML IVPB SCH ×3 (03:22→17:43)
[2020-08-19] MEDS: Levalbuterol Neb 0.63 MG/3 ML IH SCH ×4 (03:29→22:00)
[2020-08-19 04:06] LABS: VBG HCO3 24 mEq/L (21-27); VBG Ionized Calcium 1.29 mmol/L (1.15-1.35); VBG PCO2 46 mmHg (41-51); VBG PH 7.33 pH Units (7.32-7.42); VBG PO2 194 mmHg (25-50)
[2020-08-19 04:08] LABS: Basophils % 0.3 %; Hematocrit 25.5 % (37.5-50.1); Hemoglobin 8.7 g/dL (12.9-16.9); Immature Granulocytes % 1.1 % (0-4); Immature Platelets 4.6 % (1.1-6.1); Lymphocytes # 0.2 K/mcL (0.6-4.6); Lymphocytes % 6.3 %; Mean Corpuscular HGB Conc 34.1 g/dL (31.6-35.5); Mean Corpuscular Hemoglobin 36.1 pg (28.0-33.3); Mean Corpuscular Volume 105.8 fL (83.0-100.0); Mean Platelet Volume 10.2 fL (9.4-12.4); Monocytes # 0.2 K/mcL (0.0-1.3); Monocytes % 6.1 %; Neutrophils # 3.3 K/mcL (1.6-8.9); Platelet Count 113 K/mcL (140-400); Red Blood Count 2.41 M/mcL (4.19-5.50); Red Cell Distribution Width 14.6 % (11.5-14.5); Segmented Neutrophils % 86.2 %; White Blood Count 3.8 K/mcL (4.3-11.1)
[2020-08-19 04:29] LABS: Albumin 2.5 g/dL (3.5-5.7); Bilirubin,Total 0.9 mg/dL (0.3-1.0); Calcium 8.6 mg/dL (8.6-10.3); Globulin 2.6 g/dL (2.4-3.5); Magnesium 2.1 mg/dL (1.6-2.6); Phosphorous 3.3 mg/dL (2.7-4.5); Potassium 3.9 mEq/L (3.5-5.1); Total Protein 5.1 g/dL (6.4-8.9)
[2020-08-19] MEDS: *HR* Heparin 5,000 UNIT/ML VIAL SQ SCH ×2 (05:21→17:42)
[2020-08-19] MEDS: MethylPREDNISolone 40 MG/ML VIAL IVP SCH ×2 (05:22→17:43)
[2020-08-19] MEDS: Lacri-Lube 3.5 GM TUBE BOTH EYES SCH ×2 (07:51→19:38)
[2020-08-19] MEDS: Pantoprazole 40 MG VIAL IVP SCH (07:51)
[2020-08-19] MEDS ORDERED: D5% in Water 250 ML IVC SCH (15:00)
[2020-08-20] MEDS: Levalbuterol Neb 0.63 MG/3 ML IH SCH (03:42)
[2020-08-20] MEDS: Piperacillin/Tazobactam 3.375 GM in 0.9 % Sodium Chloride Mini Bag 100 ML IVPB SCH (03:56)
[2020-08-20 17:18] VITALS: BP 110/55
== END 2020-08-20 05:44 | disposition expired | DRG 871 ==
LOC: ICNU 15:31 → SUATTDRO 15:31 → 2ANU 08-15 05:00
PROVIDERS: ADMIT Pediatrics; ATTEND Internal Medicine